=== PATIENT | male | born 1975 | race Caucasian/White ===

== ENCOUNTER 2022-10-31 09:38 | Inpatient (IN) | payer MEDICAID ==
[~2022-10-31] VITALS: Ht 182.9 cm; Wt 138.0 kg
[2022-10-31] MEDS ORDERED: aspirin 81mg tab.chew PO ONE (10:00)
[2022-10-31] MEDS ORDERED: metoprolol tartrate 1mg/ml inj IV ONE (10:00)
[2022-10-31 10:11] LABS: BASOPHILS % (AUTO) 0.5 % (0-1); EOSINOPHILS # (AUTO) 0.3 X10'3 (0-0.9); EOSINOPHILS % (AUTO) 3.8 % (0-6); HEMOGLOBIN 14.1 g/dl (14.0-17.9); LYMPHOCYTES # (AUTO) 2.2 X10'3 (1.1-4.8); MEAN CORPUSCULAR HEMOGLOBIN 27.1 PG (27.0-31.0); MEAN CORPUSCULAR HGB CONC 32.7 g/dL (33.0-36.5); MEAN CORPUSCULAR VOLUME 82.9 FL (78-98); MEAN PLATELET VOLUME 8.2 FL (7.4-10.4); MONOCYTES # (AUTO) 0.7 X10'3 (0-0.9); MONOCYTES % (AUTO) 7.6 % (2-12); NEUTROPHILS # (AUTO) 5.4 X10'3 (1.8-7.7); NEUTROPHILS % (AUTO) 63.1 % (42-75); PLATELET COUNT 236 X10'3 (140-440); RED BLOOD COUNT 5.19 X10'6 (4.70-6.10); RED CELL DISTRIBUTION WIDTH 15.2 % (11.5-14.5); WHITE BLOOD COUNT 8.6 X10'3 (4.5-11.0)
[2022-10-31 10:33] LABS: ALANINE AMINOTRANSFERASE 43 U/L (12-78); ALBUMIN 3.2 G/DL (3.4-5.0); ALKALINE PHOSPHATASE 98 IU/L (46-116); ANION GAP 7 (8-16); ASPARTATE AMINO TRANSFERASE 20 U/L (10-37); BILIRUBIN,TOTAL 0.3 MG/DL (0.1-1.0); BLOOD UREA NITROGEN 13 MG/DL (7-18); BUN/CREATININE RATIO 11.8 (10.0-20.0); CALCIUM 8.8 MG/DL (8.5-10.1); CHLORIDE 107 MMOL/L (99-107); GLUCOSE 211 MG/DL (70-104); POTASSIUM 3.6 MMOL/L (3.5-5.1); SODIUM 140 MMOL/L (135-145); TOTAL CARBON DIOXIDE 26.3 MMOL/L (24-32); TOTAL PROTEIN 6.4 G/DL (6.4-8.2); eGFR 72 ML/MIN
[2022-10-31] MEDS ORDERED: enoxaparin 100mg/ml syringe SUBCUT ONE ×2 (10:50)
[2022-10-31] MEDS ORDERED: enoxaparin 40mg/0.4ml syringe SUBCUT ONE ×2 (10:50)
[2022-10-31] MEDS ORDERED: hydrALAZINE 20mg/ml inj. IV ONE (11:05)
[2022-10-31] MEDS ORDERED: mag hydrox/Alum hydrox/simeth 30ml oral suspension PO PRN (11:05)
[2022-10-31] MEDS ORDERED: HYDROcodone/acetaminophen 10/325mg tab PO PRN (11:05)
[2022-10-31] MEDS ORDERED: morphine 2 MG/ML inj. syringe IV PRN ×2 (11:05)
[2022-10-31] MEDS ORDERED: HYDROcodone/acetaminophen 5mg/325mg tablet PO PRN (11:05)
[2022-10-31] MEDS ORDERED: ondansetron/PF 4mg/2ml inj IV PRN (11:05)
[2022-10-31] MEDS ORDERED: acetaminophen 325mg tablet PO PRN (11:05)
[2022-10-31] MEDS ORDERED: magnesium hydroxide 30ml (MOM) UD suspension PO PRN (11:05)
[2022-10-31 11:34] LABS: HEMOGLOBIN A1C 6.7 % (4.5-6.2)
--- NOTE | 2022-10-31 11:54 | NUR ---
Patient updated on plan of care for admission to the hospital.
[2022-10-31] MEDS ORDERED: ALBU18HF2 INH (12:42)
--- NOTE | 2022-10-31 13:04 | NUR ---
assumed care of pt from Norma CALL, pt is resting quietly on gurney, resp even and unlabored, skin p/w/d,
--- NOTE | 2022-10-31 13:28 | NUR ---
jewelry technician at bedside
--- NOTE | 2022-10-31 14:15 | NUR ---
Dr Velazquez aware of troponin level, gave verbal order to start meds today
[2022-10-31] MEDS ORDERED: metoprolol tartrate 50mg tablet PO ONE (14:20)
[2022-10-31] MEDS: nitroGLYCERIN 0.4mg/hour patch TD SCH (14:36)
[2022-10-31] MEDS: lisinopril 10 MG tablet PO SCH (14:36)
[2022-10-31] MEDS: acetaminophen 325mg tablet PO PRN (14:38)
[2022-10-31] MEDS ORDERED: regadenoson 0.4mg/5ml syringe IV PRN (16:10)
[2022-10-31] MEDS ORDERED: nitroGLYCERIN 0.4mg SUBLingual tab SL PRN (16:10)
[2022-10-31] MEDS ORDERED: metoprolol tartrate 1mg/ml inj IV PRN (16:10)
[2022-10-31] MEDS ORDERED: aminophylline 250mg/10ml inj. IV PRN (16:10)
--- NOTE | 2022-10-31 16:28 | NUR ---
Dr Velazquez has evaluated pt, plan to be evaluated by cardiology in am
--- NOTE | 2022-10-31 16:34 | NUR ---
Bing Waldron ARTISTIC ASSOCIATE with cardiology at bedside to evaluate pt
[2022-10-31 17:37] LABS: CHOLESTEROL 169 MG/DL (0-200); HDL CHOLESTEROL 34 MG/DL (35-60); LDL CHOLESTEROL 109 MG/DL (50-100); TRIGLYCERIDES 168 MG/DL (20-135)
[2022-10-31 17:46] VITALS: BP 137/87
[2022-10-31 18:00] VITALS: BP 138/95
--- NOTE | 2022-10-31 18:38 | NUR ---
Problems reprioritized. Patient report given, questions answered & plan of care reviewed with Priscila CALL.
[2022-10-31] MEDS: docusate sod 100mg capsule PO SCH (20:00)
[2022-10-31] MEDS: furosemide 20 MG/2 ML vial IV SCH (21:12)
[2022-10-31] MEDS: metoprolol tartrate 50mg tablet PO SCH (21:13)
[2022-10-31 23:00] VITALS: BP 137/92
[2022-11-01] VITALS (15 sets, daily range): BP systolic 118–196; BP diastolic 69–107
--- NOTE | 2022-11-01 01:28 | NUR ---
Pt had another episode of HR in the 30s per the telephoto installer. Pt is asymptomatic and HR came back to 54bpm.
[2022-11-01] MEDS: nitroGLYCERIN 0.4mg/hour patch TD SCH (03:49)
[2022-11-01] MEDS: acetaminophen 325mg tablet PO PRN (05:56)
--- NOTE | 2022-11-01 06:25 | NUR ---
Informed morning nurse that pt had episodes of non sustaining bradycardia during the night that was in the 30s, but that they returned to normal limits when checked and t hat pt was asymptomatic.
--- NOTE | 2022-11-01 06:35 | NUR ---
Problems reprioritized. Patient report given, questions answered & plan of care reviewed with Nehal CALL. Pt stable at shift [facility].
--- NOTE | 2022-11-01 06:48 | NUR ---
Patient in room PCU 3029G. I have received report from Priscila CALL and had the opportunity to ask questions and assume patient care. Pt is laying high fowelrs in bed and is resting comfortabyl. Pt is on RA, no s/s of distress, no s/s of pain at this time. BLL, call light within reach, frequently used items in reach, frequent rounding, clinic receptionist socks on. Will continue to monbitor.
[2022-11-01] MEDS: lisinopril 10 MG tablet PO SCH (08:00)
[2022-11-01] MEDS: aspirin 81mg, enteric-coated 1 TAB TABLET.DR PO SCH (08:00)
[2022-11-01] MEDS: furosemide 20 MG/2 ML vial IV SCH (08:00)
[2022-11-01] MEDS: docusate sod 100mg capsule PO SCH ×2 (08:00→20:16)
[2022-11-01] MEDS: metoprolol tartrate 50mg tablet PO SCH ×2 (08:00→20:17)
--- NOTE | 2022-11-01 08:09 | NUR ---
Bing Waldron SCIENTIFIC PHOTOGRAPHER gave verbal order to do stress test
[2022-11-01 08:29] LABS: BASOPHILS % (AUTO) 0.4 % (0-1); EOSINOPHILS # (AUTO) 0.2 X10'3 (0-0.9); EOSINOPHILS % (AUTO) 2.4 % (0-6); HEMATOCRIT 39.9 % (42.0-52.0); LYMPHOCYTES # (AUTO) 1.9 X10'3 (1.1-4.8); LYMPHOCYTES % (AUTO) 19.6 % (21-51); MEAN CORPUSCULAR HEMOGLOBIN 27.2 PG (27.0-31.0); MEAN CORPUSCULAR HGB CONC 32.7 g/dL (33.0-36.5); MEAN CORPUSCULAR VOLUME 83.2 FL (78-98); MEAN PLATELET VOLUME 8.5 FL (7.4-10.4); MONOCYTES # (AUTO) 0.8 X10'3 (0-0.9); MONOCYTES % (AUTO) 8.4 % (2-12); NEUTROPHILS # (AUTO) 6.6 X10'3 (1.8-7.7); NEUTROPHILS % (AUTO) 69.2 % (42-75); PLATELET COUNT 215 X10'3 (140-440); RED BLOOD COUNT 4.79 X10'6 (4.70-6.10); RED CELL DISTRIBUTION WIDTH 15.6 % (11.5-14.5); WHITE BLOOD COUNT 9.5 X10'3 (4.5-11.0)
--- NOTE | 2022-11-01 09:27 | NUR ---
Pt down in Stress Test, off the floor at this time.
[2022-11-01 09:31] LABS: ALBUMIN 3.1 G/DL (3.4-5.0); ANION GAP 4 (8-16); BLOOD UREA NITROGEN 18 MG/DL (7-18); BUN/CREATININE RATIO 14.2 (10.0-20.0); CALCIUM 8.5 MG/DL (8.5-10.1); CHLORIDE 106 MMOL/L (99-107); CHOL/HDL RATIO 5.2 (0.00-4.99); CHOLESTEROL 160 MG/DL (0-200); CREATININE 1.27 MG/DL (0.60-1.10); GLUCOSE 118 MG/DL (70-104); HDL CHOLESTEROL 31 MG/DL (35-60); LDL CHOLESTEROL 108 MG/DL (50-100); SODIUM 139 MMOL/L (135-145); TOTAL CARBON DIOXIDE 28.7 MMOL/L (24-32); TRIGLYCERIDES 141 MG/DL (20-135); eGFR 61 ML/MIN
--- NOTE | 2022-11-01 11:25 | NUR ---
PAGER ID: [phone] MESSAGE: Justino Beasley [id number] B- May this PT have a diet? They are back from stress test. -Nehal EXT [id number] Addendum: 11/01/22 at 1332 by Nehal Wilson RN NNO given at this time, will continue to monitor.
--- NOTE | 2022-11-01 13:07 | NUR ---
PAGER ID: [phone] MESSAGE: Arnulfo Beasley 3027 B- BP 196/104 with machine, 182/90 manual. -Nehal WING 5441 Addendum: 11/01/22 at 1333 by Nehal Wilson RN NNO given at this time, will continue to monitor.
--- NOTE | 2022-11-01 15:06 | NUR ---
PAGER ID: [phone] MESSAGE: Justino Beasley 3027b - BP 162/96, HR 53. Pt SB at rest. Nuc Med called to read results -Nehal WING 5441 Addendum: 11/01/22 at 1541 by Nehal Wilson RN NNO given at this time. Will continue to monitor.
[2022-11-01] MEDS ORDERED: lisinopril 10 MG tablet PO ONE (16:35)
--- NOTE | 2022-11-01 18:35 | NUR ---
Problems reprioritized. Patient report given, questions answered & plan of care reviewed with Prudence RN.
--- NOTE | 2022-11-01 19:51 | NUR ---
Patient in room PCU 3027. I have received report from MESHA CALL and had the opportunity to ask questions and assume patient care.
[2022-11-02 02:00] VITALS: BP 151/92
[2022-11-02 06:18] LABS: ALBUMIN 3.2 G/DL (3.4-5.0); ANION GAP 4 (8-16); BASOPHILS % (AUTO) 0.4 % (0-1); BLOOD UREA NITROGEN 20 MG/DL (7-18); BUN/CREATININE RATIO 17.9 (10.0-20.0); CALCIUM 8.8 MG/DL (8.5-10.1); CHLORIDE 105 MMOL/L (99-107); CREATININE 1.12 MG/DL (0.60-1.10); EOSINOPHILS # (AUTO) 0.5 X10'3 (0-0.9); EOSINOPHILS % (AUTO) 5.2 % (0-6); GLUCOSE 129 MG/DL (70-104); HEMOGLOBIN 13.6 g/dl (14.0-17.9); LYMPHOCYTES # (AUTO) 2.2 X10'3 (1.1-4.8); MEAN CORPUSCULAR HEMOGLOBIN 27.6 PG (27.0-31.0); MEAN CORPUSCULAR HGB CONC 33.1 g/dL (33.0-36.5); MEAN CORPUSCULAR VOLUME 83.2 FL (78-98); MEAN PLATELET VOLUME 8.6 FL (7.4-10.4); MONOCYTES % (AUTO) 11.1 % (2-12); NEUTROPHILS # (AUTO) 5.3 X10'3 (1.8-7.7); NEUTROPHILS % (AUTO) 59.3 % (42-75); PLATELET COUNT 229 X10'3 (140-440); POTASSIUM 3.7 MMOL/L (3.5-5.1); RED BLOOD COUNT 4.93 X10'6 (4.70-6.10); RED CELL DISTRIBUTION WIDTH 15.5 % (11.5-14.5); SODIUM 139 MMOL/L (135-145); TOTAL CARBON DIOXIDE 29.9 MMOL/L (24-32); eGFR 70 ML/MIN
[2022-11-02 07:00] VITALS: BP 166/89
[2022-11-02] MEDS ORDERED: atorvastatin 20mg tablet PO SCH (08:00)
[2022-11-02] MEDS ORDERED: lisinopril 10 MG tablet PO SCH (08:00)
[2022-11-02] MEDS: aspirin 81mg, enteric-coated 1 TAB TABLET.DR PO SCH (08:39)
[2022-11-02] MEDS: docusate sod 100mg capsule PO SCH (08:43)
[2022-11-02] MEDS: metoprolol tartrate 50mg tablet PO SCH (08:43)
[2022-11-02] MEDS ORDERED: amLODIPine 5mg tablet PO ONE (10:55)
[2022-11-02 11:00] VITALS: BP 215/119
[2022-11-02 12:44] VITALS: BP 170/104
[2022-11-02 14:11] VITALS: BP 149/102
[2022-11-02] MEDS ORDERED: ASPI-1071 PO (14:21)
[2022-11-02] MEDS ORDERED: LISI20TA28 PO (14:21)
[2022-11-02] MEDS ORDERED: CLOP-32 PO (14:21)
[2022-11-02] MEDS ORDERED: ATOR40TA PO (14:21)
[2022-11-02] MEDS ORDERED: METO50TA16 PO (14:21)
[2022-11-02] MEDS ORDERED: NITR0.4T51 SL (14:23)
[2022-11-02] MEDS ORDERED: cloNIDine 0.1 mg tablet PO SCH (21:00)
== END 2022-11-02 15:18 | disposition home or self-care (01) | DRG 199 ==
LOC: ER 09:38 → ED HOLD 11:08 → PCU 3S 17:07
PROVIDERS: ADMIT Internal Medicine; ATTEND Internal Medicine
PROC: 4A02XM4 Measurement of Cardiac Total Activity, External Approach (ICD-10-PCS; principal; 2022-11-01)
PROC: 3E073KZ Introduction of Other Diagnostic Substance into Coronary Artery, Percutaneous Approach (ICD-10-PCS; 2022-11-01)
DX: I16.1 Hypertensive emergency (principal); I21.A1 Myocardial infarction type 2; E66.01 Morbid (severe) obesity due to excess calories; F17.220 Nicotine dependence, chewing tobacco, uncomplicated; I10 Essential (primary) hypertension; Y92.230 Patient room in hospital as the place of occurrence of the external cause; E78.5 Hyperlipidemia, unspecified; G47.33 Obstructive sleep apnea (adult) (pediatric); J45.909 Unspecified asthma, uncomplicated; N28.9 Disorder of kidney and ureter, unspecified; T50.2X5A Adverse effect of carbonic-anhydrase inhibitors, benzothiadiazides and other diuretics, initial encounter; Z68.41 Body mass index [BMI] 40.0-44.9, adult; Z79.82 Long term (current) use of aspirin; Z79.899 Other long term (current) drug therapy; Z83.3 Family history of diabetes mellitus; Z71.6 Tobacco abuse counseling
CPT/HCPCS: 36415; 70450; 71045; 78452; 80048; 80053; 80061; 83036; 83880; 84484; 85025; 87081; 93005; 93017; 93306; 99285; A4615; A9500; G0378; J0360; J1650; J1940; J2785; J3490; J7030